=== PATIENT | female | born 1950 | race Two or more races ===

== ENCOUNTER → 2016-12-12 | Outpatient (CLI) | payer OTHER ==
[~2016-12-12] MED LIST: LISI20TA PO; METF1000 PO; PIOG15TA13 PO; SIMV80TA5 PO; [UNRECOGNIZED DRUG - CODE] PO
== END | disposition home or self-care (01) ==
LOC: RADPV 09:56
PROVIDERS: ATTEND Hospitalist
DX: N18.2 Chronic kidney disease, stage 2 (mild) (principal)
CPT/HCPCS: 76770

== ENCOUNTER → 2019-05-06 | Outpatient (CLI) | payer OTHER ==
[~2019-05-06] MED LIST changes: -PIOG15TA13 PO; +PIOG15TA6 PO; -SIMV80TA5 PO; +SIMV80TA91 PO
== END | disposition home or self-care (01) ==
LOC: RADPV 10:30
PROVIDERS: ATTEND Hospitalist
DX: M85.88 Other specified disorders of bone density and structure, other site (principal); N18.3 Chronic kidney disease, stage 3 (moderate)
CPT/HCPCS: 77080